=== PATIENT | female | born 1950 | race Caucasian/White ===

== ENCOUNTER 2018-06-10 15:30 | Emergency (ER) | payer MEDICARE, MEDICAID ==
[2018-06-10] MEDS: morphine 4 MG/ML VIAL IV (17:19)
[2018-06-10] MEDS: ONDANSETRON 4 MG INJ IV (17:19)
[2018-06-10] MEDS: FENTAnyl 50 MCG/ML VIAL IV (18:41)
[2018-06-10] MEDS: PROPOFOL 200 MG INJ IV (18:42)
== END 2018-06-10 20:45 | disposition home or self-care (01) ==
LOC: E/R 15:30
DX: S52.531A Colles' fracture of right radius, initial encounter for closed fracture (principal); I10 Essential (primary) hypertension; S82.832A Other fracture of upper and lower end of left fibula, initial encounter for closed fracture; W01.0XXA Fall on same level from slipping, tripping and stumbling without subsequent striking against object, initial encounter; Y92.9 Unspecified place or not applicable; Z85.3 Personal history of malignant neoplasm of breast
CPT/HCPCS: 25605; 73100; 73110-RT; 73610; 94770; 96374; 96375; 99284-25